=== PATIENT | male | born 1990 | race Caucasian/White ===

== ENCOUNTER 2019-11-09 01:22 | Outpatient (CLI) | payer OTHER, SELFPAY ==
[2019-11-09 12:58] LABS: HCT 47.9 % (40.0-50.0); HGB 16.2 g/dL (13.5-17.5); Mean Corp. HGB Concentration 33.8 g/dL (32.0-36.0); Mean Corpuscular Hemoglobin 28.4 pg (27.0-33.0); Mean Corpuscular Volume 83.9 fL (80-95); Platelet Count 267 x1000/uL (130-400); RBC 5.71 m/cumm (4.50-6.00); White Blood Cell Count 7.42 k/cumm (4.4-10.8)
[2019-11-09 13:18] LABS: ALT 55 U/L (16-63); AST 16 U/L (15-37); Alkaline Phosphatase 80 U/L (46-116); Anion Gap 9.6 mmol/L (3-11); BUN 13 mg/dL (7-18); Bilirubin, Total 0.4 mg/dL (0.2-1.0); CO2 27.4 mmol/L (21.0-32.0); CREATININE 1.02 mg/dL (0.70-1.30); Calculated LDL 150 mg/dL; Chloride 105 mmol/L (98-107); Cholesterol 246 mg/dL (<200); Glucose 104 mg/dL (74-106); HDL Cholesterol 30 mg/dL (40-60); Potassium 4.1 mmol/L (3.5-5.1); Sodium 142 mmol/L (136-145); TSH (W/Ref FT4) 0.93 uIU/mL (0.36-3.74); Total Protein 7.8 g/dL (6.4-8.2); Triglyceride 330 mg/dL (<150)
[2019-11-09 13:53] LABS: Bilirubin Negative (Negative); Blood Trace-lysed (Negative); Clarity Clear (Clear); Glucose Negative (Negative); Ketones Negative (Negative); Leukocyte Esterase Negative (Negative); Nitrite Negative (Negative); Specific Gravity 1.025 (1.005-1.025); Urobilinogen 0.2 EU/dL (Up TO 0.2)
[2019-11-09 14:46] LABS: Bacteria Negative HPF (Negative); C & S Indicated? No; Casts Negative LPF (Negative); Crystals Negative HPF (Negative); Epithelial Cells Negative HPF (Negative); Mucus Negative (Negative); RBC 0-2 HPF (0-2); WBC 0-2 HPF (0-5)
== END 2019-11-09 01:42 ==
PROVIDERS: PCP Family Medicine; Visit Provider Family Medicine
DX: K21.9 Gastro-esophageal reflux disease without esophagitis (principal); K58.9 Irritable bowel syndrome, unspecified; R39.11 Hesitancy of micturition
CPT/HCPCS: 36415; 80053; 80061; 85027; 81003; 81015; 84443

== ENCOUNTER 2019-12-06 06:59 | Day surgery (SDC) | payer MEDICAID, SELFPAY ==
--- NOTE | 2019-12-06 06:48 | W.PM.ENDDOP ---
Date of service: 12/06/19 Time of Service: 08:06 Endoscopy Report DATE OF PROCEDURE: 12/06/19 PRE-OP DIAGNOSIS: Diarrhea and GERD POST-OP DIAGNOSIS: other (Mild gastritis and esophagitis, normal colon) PROCEDURE: 1. EGD with biopsies 2. Colonoscopy with biopsies SURGEON: Deyanira Conklin ANESTHESIA: other (General/ ASA 2/Ayden Ruiz, HEATER FURNACE) ESTIMATED BLOOD LOSS: 3 PATHOLOGY: other (Gastric bx, GE junction bx, randome bx of the entire colon) COMPLICATIONS: None DISPOSITION: same day INDICATIONS: Mr. Montalvo is here today for 2 reasons. !st is his Chronic Diarrhea that has gotten worse in the last year. He has a family history of UC in his father. He had a colonoscopy at age 17 which was normal. He was diagnosed with IBS-D. In the last year the episodes of liquid stools has increased to 7 per day. He has intermittent blood. He has had no incontinence issues. He has not lost weight and has no abdominal pain. The second issue is worsening Heart Burn over the last 6 months. He was on Pepcid but found no improvement in symptoms so he was switched to Omeprazole 40 mg daily 2 weeks ago and has seen some improvement. He denies any dysphagia, N/V. He denies post-prandial pain. Stool character: watery Stool frequency: 7x a day Duration: worse over last 1 year Able to tolerate fluids: Yes Associated with meals: No Associated with milk or milk products: No Sorbitol consumption: No Metformin use: No Previous treatment: Reports none Associated symptoms: Denies fever(s), palpitations or weight loss PREP: Miralax/Dulcolax PROCEDURE START TIME: 08:06 PROCEDURE END TIME: 08:43 COLONOSCOPY RETRACTION TIME: 14 minutes FINDINGS: EGD- mild gastritis and mild esophagitis. Evidence of reflux [place]- Grossly normal. Random biopsies done to rule out Microscopic colitis PROCEDURE DESCRIPTION: After informed consent was obtained the patient was take to the procedure room and placed in a supine position. Monitors were applied and a time out was done. The patients name, date of , procedure type, allergies to medications and metal in their body was reviewed. A bite block was placed and the patient was sedated. Once sedated and comfortable the gastroscope was advanced through the oropharynx which was grossly normal into the esophagus. The proximal and mid-esophagus were normal. In the distal esophagus there was mild inflammation noted. The scope was advanced into the stomach and through the pylorus into the 3rd portion of the duodenum. The duodenum was noted to be normal. The scope was retracted back into the stomach and mild inflammation was noted. Biopsies were done to rule out H. pylori. There were no ulcers. The scope was retroflexed. The cardia and fundus were noted to be normal. There was no hiatal hernia noted. The scope was retracted back into the esophagus. There was mild inflammation. Biopsies were done of the GE junction to rule out Hoguh's. The Z line was regular. The GE junction was at 40 cm. While the patient was still sedated they were placed in a left decubitous position. A rectal exam was done. External exam was normal. Internal exam revealed a normal sphincter tone and no palpable masses. The prostate felt smooth. The scope was then introduced and retro-flexed. No internal hemorrhoids, masses or polyps were identified on retro-flexion. The scope was then advanced to the cecum with some difficulty. The patient became bradycardic as I was trying to push the scope into the cecum and he was given Robinal. The scope was then advanced into the cecum. The TI and appendiceal orifice were identified. The prep was adequate. The scope was then slowly retracted over 14 minutes back into the rectum. Grossly the colon looked normal. There were no polyps, diverticula or signs of inflammation. Because of his diarrhea random biopsies were done throughout the colon to rule out microscopic colitis. The scope was removed and the patient was woken up and taken back to Same day surgery in stable condition. The patient tolerated the procedure well and there were no immediate complications. Follow up: 2 weeks in the office. Continue Omeprazole 40 mg daily.
--- NOTE | 2019-12-06 06:50 | W.PM.DSUDISC ---
Discharge Plan Disposition Patient Disposition: HOME Condition: Good Discharge Details Reason For Visit: Diarrhea and GERD Attending Provider: Deyanira Conklin Primary Care Provider: Nasir Burkett Home Meds and New Rx's Prescriptions: Continued acetaminophen 500 mg capsule 500 mg PO Q4H PRNRF: 0 omeprazole 40 mg capsule,delayed release(DR/EC) 40 mg PO DAILY Qty: 60 RF: 5 Discontinued bisacodyl [Dulcolax (bisacodyl)] 5 mg tablet,delayed release (DR/EC) 5 mg PO ONCE Qty: 4 RF: 0 polyethylene glycol 3350 17 gram powder in packet 255 g PO DAILY Qty: 15 RF: 0 Discharge Instructions Instructions: Diet for Stomach Ulcers and Gastritis (GEN), Gastritis (DC), Esophagitis (DC) Additional Instructions: Findings: mild inflammation of the stomach and esophagus Large bowel looked normal Follow up: 2 weeks in the office Medication: Continue Omeprazole 40 mg daily for now Please call if you develop: fevers >101.5 Nausea or Vomiting Abdominal pain that is not transient DAY SURGERY UNIT POST ENDOSCOPY INSTRUCTIONS 1. Because there will be medication in your system for the next 24 hours, you may feel a little sleepy. Your coordination will be affected. Therefore: a. Do not drive or operate dangerous equipment for 24 hours. b. Do not drink alcohol beverages for 24 hours (not even beer). c. Plan to go home and rest for the day. 2. Generally there are no restrictions on your activity after a day or so has gone by, but you may feel a bit fatigued for a few days. 3 After you arrive home you may have a light meal and return to a normal diet as you can tolerate it without feeling sick to your stomach. 4. After surgery, you may feel pain or discomfort. This should be only transient, but if it persists please contact your doctor. 5. If there are any questions regarding the findings of your procedure, please feel free to contact your doctor. 6. If you are unable to contact your doctor with a problem, contact the hospital at [phone]. 7. Continue all your regular medications unless directed otherwise. I understand the above instructions and have no questions. Signature of Patient or Responsible Adult Escort Date/Time Name of Responsible Adult Escort Signature of Nurse Date/Time Referrals: Deyanira Conklin MD [ [facility] STAFF PHYSICIAN] - 12/22/19 10:30 am Activity:: Activity as Tolerated Diet:: low acid Discharge Orders Discharge Orders: Discharge Order (Routine); Ordered 12/06/19 Ordered By: Deyanira Conklin
[2019-12-06 07:05] VITALS: BP 133/75; PULSE 69; RESP 18; TEMP 35.8; O2SAT 98
[2019-12-06] MEDS: Lactated Ringers 1,000 ML 80 ML IV (07:20)
--- NOTE | 2019-12-06 08:09 | BOWEL_PTH ---
PATIENT: Jhon Montalvo LOC: [facility] U#:[id number] AGE/SX: 29/M ROOM: RE12/06/[address]: Deyanira Conklin MD : 1990 BED: DIS: 12/06/2019 SPEC #: [id number] RECD: 12/06/19 13:11 STATUS: REBECA RE #: [id number] BIRDIE: 12/06/19 08:[address]: Deyanria Conklin DEPT: Surgical Specimen RECD BY: Jo Weber ENTERED: 12/06/19 13:13 SP TYPE: Bowel OTHR DR: Nasir Burkett MD Tissues: 1 - STOMACH BIOPSY 2 - ESOPHAGUS BIOPSY 3 - BIOPSY BOWEL 4 - BIOPSY BOWEL 5 - BIOPSY BOWEL 6 - BIOPSY BOWEL Procedures: GROSS AND MICRO LEVEL 4 Comments: [id number]
[2019-12-06 09:22] VITALS: BP 113/59; PULSE 80; RESP 16; TEMP 36.2; O2SAT 96
== END 2019-12-06 09:39 | disposition home or self-care (01) ==
LOC: SUR 07:00
PROVIDERS: PCP Family Medicine; Visit Provider Surgery
PROC: (CPT 43239; principal; 2019-12-06 08:30)
DX: K52.9 Noninfective gastroenteritis and colitis, unspecified (principal); K21.0 Gastro-esophageal reflux disease with esophagitis; R00.1 Bradycardia, unspecified
CPT/HCPCS: 43239; 45378; 88305

== ENCOUNTER 2020-03-01 08:34 | Outpatient (CLI) | payer MEDICAID, SELFPAY ==
[2020-03-04 09:50] LABS: COVID-19 RT-PCR Result Negative (Negative)
== END 2020-03-01 08:54 ==
PROVIDERS: PCP Family Medicine; Visit Provider Family Medicine
DX: Z11.59 Encounter for screening for other viral diseases (principal)
CPT/HCPCS: U0003

== ENCOUNTER 2020-03-30 19:09 | Emergency (ER) | payer MEDICAID, SELFPAY ==
[2020-03-30 19:15] VITALS: BP 131/82; PULSE 118; RESP 20; TEMP 37.7; O2SAT 95
--- NOTE | 2020-03-30 19:30 | DI.RAD_ITS ---
EXAM: XR PORTABLE CHEST AP CLINICAL HISTORY: Fever, SOB, PUI. TECHNIQUE: 2D digital imaging was performed. COMPARISON: No exams were available for comparison FINDINGS: LUNGS: Clear. No pleural abnormality seen. HEART: Normal. MEDIASTINUM: Normal. OTHER FINDINGS: None. IMPRESSION: No acute pulmonary findings. DATA REPOSITORY: RADIATION DOSE DELIVERED:
--- NOTE | 2020-03-30 19:31 | ED.GENADUL_ITS ---
Discharge Plan Disposition Patient Disposition: HOME Condition: Stable Discharge Details Chief Complaint: Fever Clinical Impression: Viral upper respiratory infection Primary Care Provider: Nasir Burkett ED Provider: Renetta Alvarado Home Meds and New Rx's Prescriptions: No Action loperamide [Anti-Diarrheal (loperamide)] 2 mg tablet 2 mg PO TID PRN (Reason: loose stool) Qty: 90 RF: 0 fluoxetine 20 mg capsule 20 mg PO DAILY Qty: 90 RF: 4 omeprazole 20 mg capsule,delayed release(DR/EC) 20 mg PO DAILY Qty: 90 RF: 2 Discharge Instructions Instructions: Upper Respiratory Infection (ED) Additional Instructions: o At this time your symptoms are very concerning for coronavirus. Due to the increased likelihood of your symptoms being from coronavirus the CDC does recommend testing. It takes 48 to 72 hours for the test results to return. You will be contacted by [facility] staff when your results return. If you do not hear from them in 48 to 72 hours, please contact [facility]. Out of an abundance of precaution it is highly recommended that you self quarantine yourself for a total of 14 days or until symptom-free for greater than 24 to 48 hours. It would be prudent to wear a mask at all times, always wash her hands frequently, and follow-up closely with your primary care provider. It is recommended that you call your primary care provider prior to reassessment. If you are going to a health facility, please call/contact them before you arrive. At this time based on your current symptoms the CDC does not recommend admission, and there is no current clinical indication for your admission here at the hospital. However it is vitally important to monitor your symptoms closely, and if you notice any worsening of your symptoms, or any new symptoms such as worsening shortness of breath, difficulty breathing, persistent fever, worsening chills, chest pain, numbness, weakness, or fainting please call and then return immediately to the emergency department for reevaluation. Please call your primary care provider as soon as possible to make them aware of your current situation and for continued monitoring. As always, it was a pleasure participating in your medical care today. Follow up with primary care provider in 3-5 days. Return to ED sooner if any worsening or concerns. Increase oral fluids. 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 Patient has reported temp of 101.8 last night. He took Tylenol prior to arrival. He was slightly tachycardic upon initial presentation at 118. He is in no respiratory distress no increased work of breathing. He does have slightly erythemic posterior pharynx. He is speaking in full sentences oxygen sat is 95% on room air. He has no pulmonary comorbidities. Rapid strep swab negative, influenza a and B swab negative. COVID swab obtained and is pending at this time. Portable chest x-ray obtained and results are noted as below. FINDINGS: Lungs: There is no consolidative pulmonary opacity. Pleural space: Unremarkable. No pleural effusion. No pneumothorax. Heart/Mediastinum: Unremarkable. No cardiomegaly. Bones/joints: Unremarkable. IMPRESSION: No evidence of lung consolidation. However, viral pneumonia cannot be excluded. Correlate with clinical laboratory findings. Currently the patient does have a concerning travel history to a high risk area, and/or direct or known indirect exposure to an area and/or patient's with known coronavirus activity. The patient demonstrates some concerning red flags as noted by the CDC for coronavirus including fever, cough, and/or shortness of breath. The patient looks notably clinically well, and does not demonstrate evidence of respiratory distress, significant or severe illness, or sepsis. Per CDC recommendations, coronavirus testing has been performed and is approved by the [facility]. Additionally patient currently does not demonstrate symptoms indicative of admission or further observation here. At this time based on the patient's current clinical picture symptoms are likely secondary to a non- coronavirus viral illness. Out of an abundance of precaution taking into account the current level of national concern, the patient's entire clinical picture, and CDC recommendations, the patient can be discharged home. Per CDC recommendations we will recommend a 14-day quarantine of the patient I have discussed good handwashing techniques, the importance of a mask, and we have also included CDC recommendations for home monitoring and isolation. I have extensively reviewed the treatment plan and discharge instructions with the patient. I have addressed all patient concerns at this time. The patient was made aware of what symptoms to monitor for that would warrant a return to the emergency department. I also discussed the importance of calling the patient's PCP, as well as the ED for any concerns or prior to return. Discussed the plan with the patient, they demonstrate verbal understanding and agreement with our assessment and plan at this time. Plan is to place patient on quarantine as a person under investigation will give quarantine instructions patient and home care. HPI General Mode of arrival: ambulatory . Date/Time Provider Initiated Documentation: 03/30/20 19:13 . Limitations to Documentation: no limitations . Information obtained by: patient . 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 Patient has reported temp of 101.8 last night. He took Tylenol prior to arrival. He was slightly tachycardic upon initial presentation at 118. He is in no respiratory distress no increased work of breathing. He does have slightly erythemic posterior pharynx. He is speaking in full sentences oxygen sat is 95% on room air. He has no pulmonary comorbidities. Related Data Home Medications Medication Instructions Recorded Confirmed loperamide 2 mg tablet 2 mg PO TID PRN #90 tab 12/22/19 03/30/20 fluoxetine 20 mg capsule 20 mg PO DAILY #90 cap 01/26/20 03/30/20 omeprazole 20 mg capsule,delayed 20 mg PO DAILY #90 cap 03/14/20 03/30/20 release Previous Rx's Medication Instructions Recorded loperamide 2 mg tablet 2 mg PO TID PRN #90 tab 12/22/19 fluoxetine 20 mg capsule 20 mg PO DAILY #90 cap 01/26/20 omeprazole 20 mg capsule,delayed 20 mg PO DAILY #90 cap 03/14/20 release Allergies Allergy/AdvReac Type Severity Reaction Status Date / Time amitriptyline Allergy Severe Suicidial Verified 03/30/20 19:22 Ideation sumatriptan [From Imitrex] Allergy Severe heart Verified 03/30/20 19:22 attack symptoms General Stated Complaint: Fever TIMOTHY: 3 Review of Systems Narrative: Constitutional: Negative for weight loss, alert and oriented, well groomed, normal body habitus, appears comfortable. HEENT: Denies trauma, headaches, blurry vision, nasal discharge, trouble swallowing. Positive sore throat Chest: Denies chest pain, palpitations, irregular rhythm, hypertension. Respiratory: Denies positive shortness of breath and dry cough hemoptysis. GI: Denies abdominal pain, nausea, vomiting, constipation. Positive diarrhea, mild : Denies dysuria, hematuria, flank pain, rectal bleeding. Has frequent urination due to congenital hypospadias which was placed corrected. Musculoskeletal: Positive myalgias and joint pain Neuro: Denies dizziness, blurry vision, weakness, syncope, headache or facial numbness. Hematologic: Denies easy bruising, intolerance to heat or cold, hair loss. [facility] Medical History H/O corrected hypospadias (Acute) Heart burn (Acute) IBS (irritable bowel syndrome) (Chronic) Surgical History H/O esophagogastroduodenoscopy (Chronic ~12/06/19) S/P appendectomy (Acute) S/P bronchoscopy (Acute) S/P colonoscopy (Acute ~12/06/19) at age 18- normal S/P urological surgery (Acute) Hypospadias repair Stricture dilatation x2 Family History Father Ulcerative colitis Paternal Uncle Gastric ulcer Social History Smoking/Tobacco Use Status: Never Alcohol Intake: current Alcohol Intake frequency: a few times a month Alcohol type: beer Drug use: Never Substance use type: does not use Household members: family Number of Children: 1 Current gender identity: male Do you feel safe at home: Yes Do you feel safe in your relationship?: Yes Exam Narrative Exam Narrative: Constitutional: Alert and oriented x3. Appears stated age. Normal body habitus. Head: Normocephalic, no trauma. Eyes: Pupils PERRLA, Red reflex noted, EOM's intact. Eyelids symmetrical without lesions, discharge, or swelling. ENT: Bilateral TM's WNL, External ear normal to inspection, no mastoid TTP, swelling, or erythema, Nasal turbinates WNL, no nasal discharge. Normal dentition, Posterior pharynx erythemic tonsils 2+ bilaterally, no exudate. Chest: Tachycardic rate of 118 normal S1, S2, distal pulses intact. Resp: Lungs clear to auscultation bilaterally, no wheezes, rales, or rhonchi. Musculoskeletal: Normal gait, 5/5 strength to all four extremities. Skin: No suspicious rashes or lesions. Capillary refill less than 2 sec. Neurologic: Cranial nerves II-XII intact. Alert and oriented x 3. DTR's intact. Hematologic/Lymphatic: No ecchymosis, no lymphadenopathy. Course Vital Signs Vital signs: Vital Signs Temperature 37.7 C H 03/30/20 19:15 Pulse 118 H 03/30/20 19:15 Respiratory Rate 20 03/30/20 19:15 Blood Pressure 131/82 03/30/20 19:15 Pulse Oximetry 95 03/30/20 19:15 Temperature 37.7 C H 03/30/20 19:15 Temperature Source Oral 03/30/20 19:15 Pulse 118 H 03/30/20 19:15 Respiratory Rate 20 03/30/20 19:15 Respiratory Effort 03/30/20 19:23 Blood Pressure 131/82 03/30/20 19:15 Pulse Oximetry 95 03/30/20 19:15 Pain Level 7 03/30/20 19:15
--- NOTE | 2020-03-30 19:41 | NUR.NOTE ---
Nursing Note:faxed referal to pcp [facility]
--- NOTE | 2020-03-30 20:07 | DI.VRAD_ITS ---
PROCEDURE INFORMATION: Exam: XR Chest, 1 View Exam date and time: 03/30/2020 7:48 PM Age: 29 years old Clinical indication: Fever and shortness of breath; Patient HX: Fever, SOB TECHNIQUE: Imaging protocol: XR of the chest Views: 1 view. COMPARISON: No relevant prior studies available. FINDINGS: Lungs: There is no consolidative pulmonary opacity. Pleural space: Unremarkable. No pleural effusion. No pneumothorax. Heart/Mediastinum: Unremarkable. No cardiomegaly. Bones/joints: Unremarkable. IMPRESSION: No evidence of lung consolidation. However, viral pneumonia cannot be excluded. Correlate with clinical laboratory findings. Dictated and Authenticated by: Fidelia Jose MD. Ordering:TULIO Jackson MD
[2020-03-30 21:07] VITALS: PULSE 103; RESP 16; TEMP 37.2; O2SAT 96
[2020-04-01 15:46] LABS: COVID-19 RT-PCR UVMMC Result Negative (Negative)
== END 2020-03-30 21:15 | disposition home or self-care (01) ==
PROVIDERS: Emergency Provider Registered Nurse Emergency; PCP Family Medicine
DX: J06.9 Acute upper respiratory infection, unspecified (principal); R50.9 Fever, unspecified; R05 Cough; J02.8 Acute pharyngitis due to other specified organisms
CPT/HCPCS: 87449; 87880; 99283; U0003; 71045; 87081

== ENCOUNTER 2020-04-04 09:22 | Outpatient (CLI) | payer MEDICAID, SELFPAY ==
[2020-04-05 15:30] LABS: COVID-19 RT-PCR Result NEGATIVE (Negative)
== END 2020-04-04 09:42 ==
PROVIDERS: PCP Family Medicine; Visit Provider Family Medicine
DX: J06.9 Acute upper respiratory infection, unspecified (principal); R50.9 Fever, unspecified; Z11.59 Encounter for screening for other viral diseases
CPT/HCPCS: 87449; U0003

== ENCOUNTER 2023-03-11 18:04 | Emergency (ER) | payer SELFPAY ==
[2023-03-11 18:09] VITALS: BP 155/91; PULSE 91; RESP 18; TEMP 36.8; O2SAT 98
[2023-03-11] MEDS: Ketorolac 15 MG/ML VIAL IM (18:26)
[2023-03-11] MEDS: Dexamethasone 10 MG/ML VIAL PO (18:27)
[2023-03-11] MEDS: Lidocaine 5% Patch 1 PATCH TP (18:27)
--- NOTE | 2023-03-11 19:01 | ED.GENADUL_ITS ---
Discharge Plan Disposition Patient Disposition: Home Condition: Improving Discharge Details Clinical Impression: Sciatica Primary Care Provider: Cony Lunsford ED Provider: Francisco Casas Home Meds and New Rx's Prescriptions: New lidocaine [Lidoderm] 5 % adhesive patch,medicated 1 patch topical DAILY PRN (Reason: back pain) Qty: 15 0RF Rx Instructions: leave on most painful area for up to 12 hrs No Action cyclobenzaprine 10 mg tablet 10 mg PO HS Qty: 30 1RF omeprazole 20 mg capsule,delayed release(DR/EC) 20 mg PO DAILY Qty: 90 3RF loperamide [Anti-Diarrheal (loperamide)] 2 mg tablet 2 mg PO TID PRN (Reason: loose stool) Qty: 90 1RF Rx Instructions: Take 1 tab 30-45 minutes before meals. Take the least amount that works for you Discharge Instructions Instructions: Sciatica (ED) Additional Instructions: Please follow with your primary care physician. Please return to the emergency department for worsening symptoms Medical Decision Making 32-year-old male presents with atraumatic lower back pain, no midline spinal tenderness, paraspinal discomfort on palpation without overlying induration or erythema, no rashes noted, afebrile nontoxic ambulatory without assistance full strength, no bowel or bladder symptomatology no symptomatology, no external signs of trauma. Symptoms consistent with lumbar radiculopathy/sciatica. Trial of analgesia anti-inflammatory, likely disposition home with home care instructions and return precautions 19: 35 resting comfortably feeling much better after meds. Will prescribe Lidoderm patch. HPI General Date/Time Provider Initiated Documentation: 03/11/23 18:13 . HPI Narrative: 32-year-old male presents with atraumatic right lower back pain rating down into right leg. Denies bowel or bladder symptoms. Denies weakness or falls. Denies fevers or chills Related Data Home Medications Medication Instructions Recorded Confirmed loperamide 2 mg tablet 2 mg PO TID PRN loose stool #90 05/15/20 03/11/23 (Anti-Diarrheal (loperamide)) tabs omeprazole 20 mg capsule,delayed 20 mg PO DAILY #90 caps 11/09/22 03/11/23 release cyclobenzaprine 10 mg tablet 10 mg PO HS #30 tabs 11/27/22 03/11/23 lidocaine 5 % topical patch 1 patch topical DAILY PRN back 03/11/23 (Lidoderm) pain #15 ea Previous Rx's Medication Instructions Recorded loperamide 2 mg tablet 2 mg PO TID PRN loose stool #90 05/15/20 (Anti-Diarrheal (loperamide)) tabs omeprazole 20 mg capsule,delayed 20 mg PO DAILY #90 caps 11/09/22 release cyclobenzaprine 10 mg tablet 10 mg PO HS #30 tabs 11/27/22 lidocaine 5 % topical patch 1 patch topical DAILY PRN back 03/11/23 (Lidoderm) pain #15 ea Allergies Allergy/AdvReac Type Severity Reaction Status Date / Time amitriptyline Allergy Severe Suicidial Verified 03/11/23 18:09 Ideation sumatriptan [From Imitrex] Allergy Severe heart Verified 03/11/23 18:09 attack symptoms General Stated Complaint: Orthopedic TIMOTHY: 4 Review of Systems Narrative: Review of Systems Constitutional: negative Eyes: negative ENT: negative Cardiovascular: negative Respiratory: negative Gastrointestinal: negative : negative Musculoskeletal: Back pain Skin: negative Neurologic: negative Psych: negative PFSH All Active Problems (Updated 03/11/23 @ 19:35 by Francisco Casas MD) Sciatica (Acute) Scrotal pain (Acute) Family history of ulcerative colitis (Acute) Anxiety (Chronic) IBS (irritable bowel syndrome) (Chronic) Post concussion syndrome (Acute) TBI (traumatic brain injury) (Acute) Reflux esophagitis (Acute) Heart burn (Acute) Medical History (Updated 03/11/23 @ 19:35 by Francisco Casas MD) H/O corrected hypospadias Surgical History H/O esophagogastroduodenoscopy (~12/06/19) S/P appendectomy S/P bronchoscopy S/P colonoscopy (~12/06/19) at age 18- normal S/P urological surgery Hypospadias repair Stricture dilatation x2 Family History (Updated 10/22/22 @ 10:00 by Charmaine Avelar) Father Ulcerative colitis Paternal Uncle Gastric ulcer Mother Asthma Maternal Grandmother Diabetes Social History (Updated 11/09/22 @ 15:06 by Patricia Mcintyre LPN) Smoking/Tobacco Use Status: Never Smoking risk assessment performed?: Yes Alcohol Intake: never Drug use: Never Substance use type: does not use Adopted: No Caregiver/Support person: No Foster care: No Household members: family Housing: house Number of Children: 2 Communication Needs: None Education Level: college Details: Bachelor's Degree Do you need help understanding health information?: Rarely current occupation: Therapist - Alcohol counseling Pets and animals: Yes Pets and animals: cat(s) and dog(s) Sexually active: Yes Do you think of yourself as: straight/heterosexual Current gender identity: male What is your relationship status?: How often do you talk on the phone with friends or family?: twice per week How often do you get together with friends or relatives?: three or more times per week Do you belong to any clubs or organized social groups?: no Panel score (0-1 are the most socially isolated patients): 2 What type of physical activity do you participate in: none Seatbelt use: always Helmet use: Yes Helmet use: always 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 Working smoke detector in home: Yes Fire extinguisher in home: Yes Carbon monox detector in home: Yes Do you feel safe at home: Yes Do you feel safe in your relationship?: Yes Exam Narrative Exam Narrative: Physical Examination General: alert, awake, cooperative, resting comfortably, no acute distress HEENT: normocephalic, atraumatic; PERRL, EOM intact, conjunctiva normal; no nasal discharge; moist mucous membranes, oral and pharyngeal mucosa normal, tolerating secretions Neck: supple, trachea midline; full ROM Chest: normal to inspection Back: No midline spinal tenderness, no step-off no crepitus, patient does have paraspinal lumbar discomfort on palpation no overlying induration erythema or fluctuance Skin: no lesions, rashes or trauma appreciated Neuro: AAOx3, normal speech, moving all extremities, ambulatory without assistance, full strength Extremities: No signs of trauma Psych: Appropriate mood and affect Course Vital Signs Vital signs: Vital Signs Temperature 36.8 C 03/11/23 18:09 Pulse 91 H 03/11/23 18:09 Respiratory Rate 18 03/11/23 18:09 Blood Pressure 155/91 H 03/11/23 18:09 Pulse Oximetry 98 03/11/23 18:09 Temperature 36.8 C 03/11/23 18:09 Temperature Source Temporal Artery Scan 03/11/23 18:09 Pulse 91 H 03/11/23 18:09 Respiratory Rate 18 03/11/23 18:09 Respiratory Effort Normal, Non-Labored 03/11/23 18:08 Blood Pressure 155/91 H 03/11/23 18:09 Pulse Oximetry 98 03/11/23 18:09 Oxygen Delivery Method Room Air 03/11/23 18:09 Oxygen Flow Rate 0 03/11/23 18:09 Pain Level 8 03/11/23 18:27
== END 2023-03-11 19:48 | disposition home or self-care (01) ==
LOC: ER 19:50
PROVIDERS: Emergency Provider Emergency Medicine; PCP Nurse Practitioner
DX: M54.41 Lumbago with sciatica, right side (principal)
CPT/HCPCS: 96372; 99283; J1100; J1885

== ENCOUNTER 2023-04-05 02:53 | Outpatient (CLI) | payer BC, SELFPAY ==
[2023-04-05 08:09] LABS: Cholesterol 312 mg/dL (<200); HDL Cholesterol 33 mg/dL (40-60); Triglyceride 500 mg/dL (<150)
[2023-04-05 08:28] LABS: LDL CHOLESTEROL 178 mg/dL (<100)
== END 2023-04-05 02:54 | disposition home or self-care (01) ==
LOC: LBO 02:53
PROVIDERS: PCP Nurse Practitioner; Visit Provider Nurse Practitioner
DX: E78.49 Other hyperlipidemia (principal)
CPT/HCPCS: 36415; 80061; 83721

== ENCOUNTER → 2023-12-13 01:50 | Outpatient (CLI) | payer MEDICAID, SELFPAY ==
--- NOTE | 2023-12-13 07:37 | DI.CT_ITS ---
Exam(s) CT SINUS WO EXAM: CT SINUS WO CLINICAL HISTORY: nasal polyp, left-sided congestion,J33.9,R09.81. Evaluate for sinusitis. TECHNIQUE: Imaging Protocol: Axial computed tomography images with coronal and sagittal reformatted images were created and reviewed. COMPARISON: No exams were available for comparison FINDINGS: AXIAL IMAGES: Frontal sinuses: There is mild mucosal thickening in the maxillary sinuses bilaterally. No fluid lev els are seen. Ethmoid air cells: There is significant opacification of the ethmoid air cells bilaterally. Maxillary sinuses: There is mucosal thickening in the maxillary sinuses bilaterally. There is a muco us retention cyst in the left maxillary sinus. Sphenoid sinus: There is mild mucosal thickening in the sphenoid sinuses bilaterally. No fluid level s are seen. Ostiomeatal complexes: There is obstruction of the ostiomeatal complexes bilaterally. Osseous nasal septum: There is soft tissue seen in the left nasal passageway which may reflect polyps . Visualized regional soft tissues: No acute findings. Orbits: Unremarkable. Bones: Unremarkable. Mastoid Air Cells: Normally aerated. IMPRESSION: 1. Soft tissue in the left nasal passageway suspicious for polyp. 2. Pansinusitis. Possible mucous retention cyst in the left maxillary sinus. RADIATION DOSE DELIVERED: 133.27mGy.cm Total DLP DATA REPOSITORY: All CT scans at this facility are submitted to the National Radiology Data Registry (NRDR) Dose Index Registry (DIR) with the [employer] ([employer]). RADIATION OPTIMIZATION: All CT scans at this facility use at least one of these dose optimization te chniques: automated exposure control; mA and/or kV adjustment per patient size (includes targeted exa ms where dose is matched to clinical indication); or iterative reconstruction.
== END ==
PROVIDERS: PCP Nurse Practitioner; Visit Provider Registered Nurse Maternal Newborn
DX: J01.40 Acute pansinusitis, unspecified (principal)
CPT/HCPCS: 70486